=== PATIENT | female | born 1930 | race Caucasian/White ===

== ENCOUNTER 2019-03-19 13:12 | Inpatient (IN) | payer MEDICARE, MEDICAID ==
[~2019-03-19] VITALS: Ht 154.9 cm; Wt 49.4 kg
[2019-03-19] MEDS ORDERED: QUET100T PO ×2 (13:42)
[2019-03-19] MEDS ORDERED: ESTR0.623 PO (13:42)
[2019-03-19] MEDS ORDERED: METH1TAB29 PO (13:42)
[2019-03-19] MEDS ORDERED: LEVO75TA7 PO (13:42)
[2019-03-19] MEDS ORDERED: AMLO2.5T4 PO (13:42)
[2019-03-19] MEDS ORDERED: MEMA21CA PO (13:42)
[2019-03-19] MEDS ORDERED: MULT1TAB73 PO (13:42)
[2019-03-19] MEDS ORDERED: CYAN-10 SQ (13:42)
[2019-03-19] MEDS ORDERED: ATOR20TA PO (13:42)
[2019-03-19] MEDS ORDERED: ASPI81TA44 PO (13:42)
[2019-03-19] MEDS ORDERED: QUET25TA PO (13:42)
[2019-03-19] MEDS ORDERED: LORAZEPAM 2 MG/1 ML VIAL ONE (14:15)
[2019-03-19] MEDS ORDERED: LORAZEPAM 2 MG/1 ML VIAL IM ONE (14:15)
[2019-03-19 14:19] LABS: BASOPHILS # (AUTO) 0.1 K/uL (0.0-8.0); BASOPHILS % (AUTO) 0.8 % (0.0-2.0); EOSINOPHILS # (AUTO) 0.1 K/uL (0.0-0.7); EOSINOPHILS % (AUTO) 1.3 % (0.0-7.0); HEMOGLOBIN 13.1 g/dL (10.9-14.3); LYMPHOCYTES # (AUTO) 1.9 K/uL (20.0-40.0); LYMPHOCYTES % (AUTO) 22.4 % (20.5-51.5); MEAN CORPUSCULAR HEMOGLOBIN 27.5 uug (24.7-32.8); MEAN CORPUSCULAR HGB CONC 32 g/dL (32.3-35.6); MEAN CORPUSCULAR VOLUME 86.1 fL (75.5-95.3); MONOCYTES # (AUTO) 0.6 K/uL (2.0-10.0); MONOCYTES % (AUTO) 7.1 % (0.0-11.0); NEUTROPHILS # (AUTO) 5.8 K/uL (1.8-8.9); NEUTROPHILS % (AUTO) 68.4 % (38.5-71.5); PLATELET COUNT (AUTO) 402 K/uL (179-408); RED BLOOD CELL COUNT(AUTO) 4.76 MIL/uL (3.63-4.92); WHITE BLOOD COUNT (AUTO) 8.5 K/uL (3.8-11.8)
[2019-03-19 14:21] LABS: CARBON DIOXIDE 28 mmol/L (21-32); CHLORIDE 108 mmol/L (98-107); CREATININE 1.1 mg/dL (0.6-1.3); GLUCOSE 137 mg/dL (74-106); POTASSIUM 5.1 mmol/L (3.5-5.1); UREA NITROGEN, BLOOD 21 mg/dL (7-18)
[2019-03-19 14:24] LABS: *BILIRUBIN,URIN NEGATIVE (NEGATIVE); *BLOOD, URINE NEGATIVE (NEGATIVE); *CLARITY,URINE CLOUDY (CLEAR); *COLOR,URINE YELLOW (YELLOW); *KETONES,URINE NEGATIVE (NEGATIVE); *UROBILINOGEN,URINE 0.2 E.U./dl (NORMAL); LEUKOCYTE ESTERASE ,URINE 1+ (NEGATIVE); NITRITE, URINE POSITIVE (NEGATIVE); PH,URINE >=9.0 (5.0-8.0); UGLUCOSE NEGATIVE (NEGATIVE)
[2019-03-19 14:26] LABS: ALANINE AMINOTRANSFERASE 9 U/L (14-59); ALKALINE PHOSPHATASE 90 U/L (50-136); ASPARTATE AMINOTRANSFERASE 16 U/L (15-37); BILIRUBIN,DIRECT 0.1 mg/dL (0.0-0.2); BILIRUBIN,TOTAL 0.2 mg/dL (0.2-1.0); TOTAL PROTEIN, SERUM 7.2 g/dL (6.4-8.2)
[2019-03-19 14:27] LABS: ETHANOL < 3 MG/DL (0-0)
[2019-03-19 14:30] LABS: ACETAMINOPHEN < 2.0 ug/mL (10-30)
[2019-03-19 14:48] LABS: THYROID STIMULATING HORMONE 3.363 mIU/mL (0.358-3.740)
[2019-03-19 14:50] LABS: BACTERIA,URINE MANY /HPF (NONE SEEN); TRIPLE PHOSPHATE CRYSTAL,UR MANY /HPF (NONE SEEN); URINE AMORPHOUS PHOSPHATES MANY /HPF
[2019-03-19 14:52] LABS: *AMPHETAMINE, URINE NEGATIVE (NEGATIVE); *BARBITURATE, URINE NEGATIVE (NEGATIVE); *CANNABINOID, URINE NEGATIVE (NEGATIVE); *COCCAINE, URINE NEGATIVE (NEGATIVE); *OPIATE, URINE NEGATIVE (NEGATIVE); *PHENCYCLIDINE SCREEN,URINE NEGATIVE (NEGATIVE)
--- NOTE | 2019-03-19 16:34 | NUR ---
ROSHNI speaking with Dr. De Jesus (VASCULAR SURGERY).
--- NOTE | 2019-03-19 16:50 | NUR ---
Called [facility] transfer center (main [phone], fax [phone]) per request for HLOC transfer. Spoke with Samuel, requested information provided via telephone, facesheet and CT report faxed as requested.
--- NOTE | 2019-03-19 17:09 | NUR ---
ROSHNI spoke with Leif Montaño ([facility]).
--- NOTE | 2019-03-19 17:25 | NUR ---
Received telephone call from Samuel from [facility] who stated he spoke with their vascular surgeon who declined the case. notified.
--- NOTE | 2019-03-19 17:40 | NUR ---
DR DIAMOND DISCUSSED PT's CASE WITH DR JONES AND PT's IRVIN. PT IS GOING TO BE ADMITED TO [facility] ROOM #[address] BLANKENSHIP SUPERVISION.
--- NOTE | 2019-03-19 17:42 | NUR ---
REPORT WAS GIVEN TO U JOANNA. PT WAS TRANSFERED TO [facility] ROOM #145.
[2019-03-19] MEDS ORDERED: MAGNESIUM HYDROXIDE 30 ML LIQUID UDC PO PRN (18:15)
[2019-03-19] MEDS ORDERED: MAG HYDROX/AL HYDROX/SIMETH 30 ML LIQUID UDC PO PRN (18:15)
[2019-03-19] MEDS ORDERED: LORAZEPAM 0.5 MG TABLET PO PRN (18:15)
[2019-03-19] MEDS ORDERED: ZOLPIDEM 5 MG TABLET PO PRN (18:15)
[2019-03-19] MEDS ORDERED: BLOOD SUGAR DIAGNOSTIC 1 EACH STRIP VI ONE (18:15)
[2019-03-19 18:53] VITALS: BP 117/69
--- NOTE | 2019-03-19 19:00 | NUR ---
1800 Received patient from ER per jaimee, alert and ox1. Resp. even and unlabored, no s/s acute distress. Patient placed on 5150 for danger to others and gravely disabled, patient aggressive in the usp. Vijay check done; skin tear on right arm . Patient has a supra pubic cath draining yellow colored urine and foul odor. Upon face -face patient ia alert and ox1, confused and unable to give any information. Epic MD and psych trombone slide assembler notified by charge nurse to reconcile meds,
--- NOTE | 2019-03-19 20:00 | NUR ---
Patient received into care, sitting up in bannerichair, next to nurse's station. Patient is alert/oriented x1 and has no complaints of pain or discomfort at this time. All safety and fall precaution measures are in place. Will continue to monitor.
[2019-03-19] MEDS: LORAZEPAM 1 MG TABLET PO PRN (21:20)
--- NOTE | 2019-03-19 22:45 | NUR ---
DR RODRIGO JONES WAS NOTIFY OF PATIENT'S URINALYSIS RESULTS. HE STATE HE WILL "LOOK AT THEM". WILL CONTINUE TO MONITOR.
[2019-03-20] MEDS: LEVOTHYROXINE SODIUM 75 MCG TABLET PO SCH (06:31)
--- NOTE | 2019-03-20 06:57 | NUR ---
Patient slept 7.15 hours this shift and was compliant with all aspects of care, including medicine regime. Inspection of patient's suprapubic catheter reflects zero output in casillas bag and diaper completely soaked. Additionally, dressing around suprapubic opening was stiff with dried urine and exudate, and suprapubic opening surrounded by redness. Patient had perianal redness which was addressed with zguard. Patient had no incidents of combativeness or striking out this shift. All safety and fall precaution measures remain in place.
[2019-03-20 07:30] VITALS: BP 110/54
--- NOTE | 2019-03-20 07:30 | NUR ---
Recieved pt lying in bed very sound asleep. Arousable to call but answered inappropriately. Appears to be generally weak. Verbally responsive and oriented to her name only. Very confused and unable to follow directions. Moves all extremties but needs maximal assistance. Pt has a suprapubic catheter casillas size 12 i connected to a foleybag, with zero urine. Site is slightly red and has urine leakage around the stoma. Bladder is soft, no-distended. Pt denies any discomfort. Cleaned up the site and coverred with 4x4 gauze and mepelex. Abdomenal binder applied to keep pt from pulling it out.
[2019-03-20] MEDS ORDERED: Medication Not On Formulary EA (Methenamine Hippurate 1 GM) PO SCH (09:00)
[2019-03-20] MEDS ORDERED: Medication Not On Formulary EA (Multivitamins (Multivitamin) 1 EACH) PO SCH (09:00)
[2019-03-20] MEDS: MULTIVITAMINS,THERAPEUTIC TABLET PO SCH (09:43)
[2019-03-20] MEDS: ASPIRIN EC 81 MG TABLET.DR PO SCH (09:43)
[2019-03-20] MEDS: AMLODIPINE 2.5 MG TABLET PO SCH (09:44)
[2019-03-20] MEDS: ESTROGENS,CONJUGATED 0.625 MG TABLET PO SCH (09:44)
--- NOTE | 2019-03-20 13:00 | NUR ---
Pt's diaper is chaned, soaked with urine. Unable to flush the catheter or pull out any urine. Bladder scan done and theres only 29ml present.
[2019-03-20 13:06] LABS: HEPATITIS B SURFACE AB Non Reactive (.); HEPATITIS B SURFACE AG Negative (Negative)
--- NOTE | 2019-03-20 13:30 | NUR ---
Notified Dr Navarro about pt's condition especially regarding the blocked catheter. Will refer pt to a urlogy consult as per his order.
[2019-03-20] MEDS: CEphaleXIN 500 MG CAPSULE PO SCH ×3 (13:49→21:07)
--- NOTE | 2019-03-20 14:19 | NUR ---
CALLED AND SPOKE TO NURSE FAHAD FROM [facility]. SHE STATED CATHETER GETS CLOGGED "OFTEN" AND PT REQUIRES TO BE SENT OUT TO THE HOSPITAL TO HAVE IT REPLACED. STATE THE LAST TIME PT WAS SENT OUT FOR A NEW CATHETER WAS IN OCTOBER.
[2019-03-20] MEDS: LORAZEPAM 1 MG TABLET PO PRN (15:00)
--- NOTE | 2019-03-20 15:00 | NUR ---
Pt is very agitated and uncooperative. Refused to take her oral medications. MD is aware. Pt is given Ativan 1mg as ordered but pt refused to take it.
[2019-03-20 15:17] VITALS: BP 126/59
--- NOTE | 2019-03-20 15:30 | NUR ---
Notified Dr Smith about pt's suprapubic catheter. HeWill try to reinsert tonite or tomorrow.
--- NOTE | 2019-03-20 16:04 | NUR ---
STAFF NURSE CALLED AND SPOKE TO DR. VILLASENOR REGARDING PT'S SUPRAPUBIC CATHETER LEAKING AND CLOGGED. ORDERED FOR CONSULT WITH UROLOGY, DR. GODFREY.
--- NOTE | 2019-03-20 16:12 | NUR ---
CALLED DR. RICHARDSON[facility]S ANSWERING SERVICE TO NOTIFY OF CONSULT. STATED THEY WILL PAGE DOCTOR.
--- NOTE | 2019-03-20 16:18 | NUR ---
DR. GODFREY CALLED BACK AT THIS TIME. STATED HE WILL TRY TO BE HERE TODAY AND TO GET A SALINAS TRAY AND 12FR CATHETER READY.
--- NOTE | 2019-03-20 18:00 | NUR ---
Pt refused to eat dinner and threw out her food on the floor. Sleeping on and off. PM care rendered with maximal assistance.
--- NOTE | 2019-03-20 18:15 | NUR ---
Seen and examined by Dr Navarro with no new orders.
[2019-03-20] MEDS: ATORVASTATIN 20 MG TABLET PO SCH (21:00)
[2019-03-20] MEDS: QUETIAPINE FUMARATE 100 MG TABLET PO SCH (21:00)
--- NOTE | 2019-03-20 21:08 | NUR ---
Received patient in Xochilt chair, angry, combative. Refusing to take medications, eat or drink. Patient put in bed, replaced suprapubic catheter at bedside. Patient tolerated it well. New dressing applied along with abdominal binder. Patient in bed resting at this time. Continuing to monitor urine output.
[2019-03-21] MEDS: CEphaleXIN 500 MG CAPSULE PO SCH ×3 (05:36→23:21)
--- NOTE | 2019-03-21 05:57 | NUR ---
Patient slept 5 hours on and off. Suprapubic catheter patent and draining. 200ml output during the night. Patient received bed bath but was very combative, hitting, scratching and trying to bite the nurse. Refused am antibiotics. Patient very paranoid and yelling during am care. No distress at this time noted. Will endorse to next shift.
[2019-03-21] MEDS: LEVOTHYROXINE SODIUM 75 MCG TABLET PO SCH (07:30)
[2019-03-21 08:00] VITALS: BP 151/56
[2019-03-21] MEDS ORDERED: OLANZAPINE 10 MG VIAL IM ONE (09:00)
--- NOTE | 2019-03-21 09:00 | NUR ---
Seen and examined by Dr Lovett with new orders. Pt is very agitated and aggressive. She is yelling and refusing her oral medications. Pt does not eat , threw her food on the floor. is aware. and ordered Zyprexa 5mg IMx1 for her severe agitation.
--- NOTE | 2019-03-21 09:10 | NUR ---
Pt is medicated with Zyprexa 5mg IM on the left deltoid with maximal assistance.
[2019-03-21] MEDS: MULTIVITAMINS,THERAPEUTIC TABLET PO SCH (09:46)
[2019-03-21] MEDS: ASPIRIN EC 81 MG TABLET.DR PO SCH (09:46)
[2019-03-21] MEDS: ESTROGENS,CONJUGATED 0.625 MG TABLET PO SCH (09:46)
[2019-03-21] MEDS: SERTRALINE HCL 50 MG TABLET PO SCH (09:46)
[2019-03-21] MEDS: AMLODIPINE 2.5 MG TABLET PO SCH (09:46)
--- NOTE | 2019-03-21 13:30 | NUR ---
Pt up to the bathroom with PT and another person. Pt is still easily gets agitated but more cooperative.
--- NOTE | 2019-03-21 15:00 | NUR ---
Pt [facility] afternoon. Took her keflex antibiotic med. Suprapubic catheter is intact and draining cloudy yellow urine with lots of sediments..
--- NOTE | 2019-03-21 15:30 | NUR ---
Seen and examined by Leif FIGUEREDO, no new orders.
[2019-03-21 16:00] VITALS: BP 93/48
[2019-03-21] MEDS: QUETIAPINE FUMARATE 100 MG TABLET PO SCH (20:31)
[2019-03-21] MEDS: ATORVASTATIN 20 MG TABLET PO SCH (20:31)
[2019-03-21 21:07] VITALS: BP 110/61
[2019-03-21] MEDS: LORAZEPAM 1 MG TABLET PO PRN (23:23)
[2019-03-22] MEDS: CEphaleXIN 500 MG CAPSULE PO SCH ×3 (05:59→22:41)
[2019-03-22] MEDS: LEVOTHYROXINE SODIUM 75 MCG TABLET PO SCH (06:37)
[2019-03-22 07:30] VITALS: BP 114/52
[2019-03-22] MEDS: MULTIVITAMINS,THERAPEUTIC TABLET PO SCH (08:11)
[2019-03-22] MEDS: SERTRALINE HCL 50 MG TABLET PO SCH (08:12)
[2019-03-22] MEDS: ASPIRIN EC 81 MG TABLET.DR PO SCH (08:12)
[2019-03-22] MEDS: ESTROGENS,CONJUGATED 0.625 MG TABLET PO SCH (08:14)
[2019-03-22] MEDS: AMLODIPINE 2.5 MG TABLET PO SCH (08:15)
--- NOTE | 2019-03-22 11:35 | NUR ---
diversified crops farmworker attempted to meet with pt to conduct sw assessment but pt asleep and not easily aroused. diversified crops farmworker called next of kin listed on facesheet, daughter Lakeisha Connolly [[phone]], but no answer. SW left voicemail. SW will attempt to contact family again at a later time.
--- NOTE | 2019-03-22 13:40 | NUR ---
Initial discharge plan: Pt resides at [facility] (SNF) located at [address] [place] [id number]; [phone].WANDA spoke with MIN, instructional technology coordinator at [facility], and he confirmed that pt will be accepted back to the facility once she is ready for discharge. WANDA called pts next of kin, daughter Lakeisha Connolly [[phone]] to discuss discharge plan, but no answer, and WANDA left voicemail. WANDA will work with pt, pt family, and MD to form a safe and proper discharge.
--- NOTE | 2019-03-22 14:00 | NUR ---
Pts daughter, Lakeisha Connolly [[phone]] returned social workers call and confirmed with geriatric social work professor that family is in agreement of having pt return to [facility] once she is ready for discharge.
[2019-03-22 15:21] VITALS: BP 103/46
--- NOTE | 2019-03-22 18:37 | NUR ---
GPS: RECEIVED PATIENT AOX1, ON HER BED, WITH SUPRAPUBIC CATHETER ATTACH TO BEDSIDE BAG WITH 50 CC OF CLEAR URINE FLOWING, PATIENT CALM HOWEVER EASILY IRRITABLE, COMPLIANT WITH MEDICATION, PATIENT ENCOURAGE TO DRINK MORE WATER THROUGHOUT THE DAY, PATIENT WERE CALM THROUGHOUT THE DAY NO DISTRESS NOTED
[2019-03-22 20:00] VITALS: BP 108/55
[2019-03-22] MEDS: ATORVASTATIN 20 MG TABLET PO SCH (20:36)
[2019-03-22] MEDS: QUETIAPINE FUMARATE 100 MG TABLET PO SCH (20:37)
[2019-03-22] MEDS: ACETAMINOPHEN 325 MG TABLET PO PRN (23:49)
[2019-03-23] MEDS: LORAZEPAM 1 MG TABLET PO PRN (00:13)
[2019-03-23 02:06] LABS: HEPATITIS Be ANTIGEN Negative (Negative)
[2019-03-23] MEDS: CEphaleXIN 500 MG CAPSULE PO SCH ×3 (06:00→22:05)
[2019-03-23] MEDS: LEVOTHYROXINE SODIUM 75 MCG TABLET PO SCH ×2 (06:35→07:00)
--- NOTE | 2019-03-23 07:03 | NUR ---
PT SLEPT 5 HOURS. PT IN NO ACUTE DISTRESS. PRESCRIBED MEDICATION GIVEN AND PT TOLERATED IT WELL. PT GIVEN PRN MEDICATIONS. AM MEDICATIONS PT REFUSED IT. PT WHILE CHANGING HER DIAPER. PT BECOME COMBATIVE AND TRY TO STRIKE A STAFF. PT NEEDS REORIENTATION. SUPRAPUBIC CATHETER INTACT AND DWELLING WELL. SAFETY AND COMFORT PROVIDED. WILL ENDORSE TO INCOMING NURSE FOR CONTINUITY OF CARE.
[2019-03-23 07:30] VITALS: BP 117/49
--- NOTE | 2019-03-23 08:00 | NUR ---
Pt is very sound asleep in bed, but arousable to call. N apparent distress noted.
--- NOTE | 2019-03-23 09:30 | NUR ---
Pt is awakened and placed on a gerochair. Awaken and oriented to her name. Very pleasant and cooperative. Placed chair on the hallway and pt ate good amount for breakfast.
--- NOTE | 2019-03-23 10:00 | NUR ---
Suprapubic catheter in intact and draining well, cloudy yellow urine, good amount.
[2019-03-23] MEDS: SERTRALINE HCL 50 MG TABLET PO SCH (10:41)
[2019-03-23] MEDS: ASPIRIN EC 81 MG TABLET.DR PO SCH (10:41)
[2019-03-23] MEDS: MULTIVITAMINS,THERAPEUTIC TABLET PO SCH (10:41)
[2019-03-23] MEDS: ESTROGENS,CONJUGATED 0.625 MG TABLET PO SCH (10:42)
[2019-03-23] MEDS: AMLODIPINE 2.5 MG TABLET PO SCH (10:42)
--- NOTE | 2019-03-23 14:00 | NUR ---
Pt fallen asleep on the gerochair and refused to take the medicine keflex
[2019-03-23 15:12] VITALS: BP 138/56
--- NOTE | 2019-03-23 17:30 | NUR ---
Pt refused her dinner and fell asleep.
[2019-03-23 20:16] VITALS: BP 112/64
[2019-03-23] MEDS: ATORVASTATIN 20 MG TABLET PO SCH (22:04)
[2019-03-23] MEDS: QUETIAPINE FUMARATE 100 MG TABLET PO SCH (22:05)
--- NOTE | 2019-03-23 23:01 | NUR ---
Received patient in gerichari resting, but agitated when spoken to. No distress noted. Suprapubic catheter noted, draining well. Was able to give medication with pudding. Will continue to monitor.
[2019-03-24] MEDS: CEphaleXIN 500 MG CAPSULE PO SCH ×3 (06:00→20:27)
[2019-03-24] MEDS: LEVOTHYROXINE SODIUM 75 MCG TABLET PO SCH (06:37)
--- NOTE | 2019-03-24 06:37 | NUR ---
Patient agitated when awaken for morning medication. She refused Keflex and Synthroid. Explained the use, benefits, and risk, but patient just said "you can go now" and I offered again 15 min later, but she still refused. Will endorse to next shift.
[2019-03-24 07:30] VITALS: BP 121/49
[2019-03-24] MEDS: ASPIRIN EC 81 MG TABLET.DR PO SCH (08:33)
[2019-03-24] MEDS: AMLODIPINE 2.5 MG TABLET PO SCH (08:36)
[2019-03-24] MEDS: ESTROGENS,CONJUGATED 0.625 MG TABLET PO SCH (09:00)
[2019-03-24] MEDS: MULTIVITAMINS,THERAPEUTIC TABLET PO SCH (09:00)
[2019-03-24] MEDS ORDERED: CYANOCOBALAMIN 1000 MCG/ML VIAL IM SCH (09:00)
[2019-03-24] MEDS: SERTRALINE HCL 50 MG TABLET PO SCH (09:00)
[2019-03-24] MEDS ORDERED: OLANZAPINE 10 MG VIAL IM ONE (09:00)
[2019-03-24] MEDS: LORAZEPAM 1 MG TABLET PO PRN (14:55)
[2019-03-24 16:00] VITALS: BP 106/49
[2019-03-24] MEDS: QUETIAPINE FUMARATE 100 MG TABLET PO SCH (20:27)
[2019-03-24] MEDS: ATORVASTATIN 20 MG TABLET PO SCH (20:27)
--- NOTE | 2019-03-24 22:00 | NUR ---
received to care, up in willem chair compliant with medications, easily agitated difficult to redirect. refused to go to bed. currently up in willem chair talking to self. no distress noted. will continue to monitor closely.
--- NOTE | 2019-03-25 02:03 | NUR ---
assisted to bed earlier. appears to be asleep. no distress noted.
[2019-03-25] MEDS: CEphaleXIN 500 MG CAPSULE PO SCH ×3 (06:00→20:09)
--- NOTE | 2019-03-25 06:00 | NUR ---
SLEPT 4.5 HOURS. REFUSED AM MEDICATIONS
[2019-03-25] MEDS: LEVOTHYROXINE SODIUM 75 MCG TABLET PO SCH (06:37)
[2019-03-25 07:30] VITALS: BP 109/58
[2019-03-25] MEDS: AMLODIPINE 2.5 MG TABLET PO SCH (09:00)
[2019-03-25] MEDS ORDERED: QUETIAPINE FUMARATE 25 MG TABLET PO SCH (09:00)
[2019-03-25] MEDS: ASPIRIN EC 81 MG TABLET.DR PO SCH (09:00)
[2019-03-25] MEDS: MULTIVITAMINS,THERAPEUTIC TABLET PO SCH (09:00)
[2019-03-25] MEDS: SERTRALINE HCL 50 MG TABLET PO SCH (09:00)
[2019-03-25] MEDS: ESTROGENS,CONJUGATED 0.625 MG TABLET PO SCH (09:00)
[2019-03-25 16:00] VITALS: BP 108/47
[2019-03-25] MEDS: QUETIAPINE FUMARATE 100 MG TABLET PO SCH (20:08)
[2019-03-25] MEDS: ATORVASTATIN 20 MG TABLET PO SCH (20:12)
[2019-03-25 20:44] VITALS: BP 117/64
--- NOTE | 2019-03-25 22:00 | NUR ---
received to care, up in willem chair compliant with medications, easily agitated, but easy to redirect. refused to go to bed. currently up in willem chair talking to self. s/p catheter in place, and patent. no distress noted. will continue to monitor closely.
--- NOTE | 2019-03-26 02:00 | NUR ---
Assisted to be around 0130. a sof 0200, she appears to be asleep. no distress noted.
[2019-03-26] MEDS: CEphaleXIN 500 MG CAPSULE PO SCH (05:38)
--- NOTE | 2019-03-26 06:00 | NUR ---
slept 3.25 hours totaL.
[2019-03-26] MEDS: LEVOTHYROXINE SODIUM 75 MCG TABLET PO SCH (06:09)
[2019-03-26 07:30] VITALS: BP 104/49
[2019-03-26] MEDS: ASPIRIN EC 81 MG TABLET.DR PO SCH (08:23)
[2019-03-26] MEDS: MULTIVITAMINS,THERAPEUTIC TABLET PO SCH (08:24)
[2019-03-26] MEDS: ESTROGENS,CONJUGATED 0.625 MG TABLET PO SCH (08:27)
[2019-03-26] MEDS: AMLODIPINE 2.5 MG TABLET PO SCH (08:27)
--- NOTE | 2019-03-26 10:11 | NUR ---
Family Contact: Family Contact: SW contacted pts daughter Lakeisha, ([phone]) and informed that pts hearing will occur today. Pts daughter was informed and aware. Addendum: 03/26/19 at 1011 by CLAUDIA MUÑOZ Family Contact: WANDA contacted pts daughter Lakeisha, ([phone]) and informed that pts hearing will occur today. Pts daughter was informed and aware.
--- NOTE | 2019-03-26 10:23 | NUR ---
Family Contact: Pts daughter, Lakeisha ([phone]) asked to speak to Dr. Lovett.
--- NOTE | 2019-03-26 15:27 | NUR ---
Family Contact: child welfare caseworker informed pts next of kin, daughter Lakeisha Connolly [[phone]] regarding outcome of hold hearing.
[2019-03-26] MEDS: LORAZEPAM 1 MG TABLET PO PRN (16:01)
[2019-03-26 16:49] VITALS: BP 127/63
[2019-03-26] MEDS: MIRTAZAPINE 15 MG TABLET PO SCH (20:04)
[2019-03-26] MEDS: ATORVASTATIN 20 MG TABLET PO SCH (20:04)
[2019-03-26] MEDS: QUETIAPINE FUMARATE 100 MG TABLET PO SCH (20:04)
[2019-03-26 20:32] VITALS: BP 117/97
--- NOTE | 2019-03-27 00:33 | NUR ---
assisted to bed, and went right to sleep. no distress noted.
--- NOTE | 2019-03-27 06:00 | NUR ---
SLEPT 7.25 HOURS.
[2019-03-27] MEDS: LEVOTHYROXINE SODIUM 75 MCG TABLET PO SCH (07:08)
[2019-03-27 08:00] VITALS: BP 136/115
[2019-03-27] MEDS: MULTIVITAMINS,THERAPEUTIC TABLET PO SCH (09:57)
[2019-03-27] MEDS: ESTROGENS,CONJUGATED 0.625 MG TABLET PO SCH (09:57)
[2019-03-27] MEDS: AMLODIPINE 2.5 MG TABLET PO SCH (09:58)
[2019-03-27] MEDS: ASPIRIN EC 81 MG TABLET.DR PO SCH (09:58)
[2019-03-27 16:15] VITALS: BP 102/54
--- NOTE | 2019-03-27 17:36 | NUR ---
GPS: RECEIVED PATIENT AOX1, ASLEEP ON HER BED, WITH SUPRAPUBIC CATHETER ATTACH TO BEDSIDE BAG FLOWING WITH CLEAR URINE, PATIENT WOKE UP TOOK HER MEDICATION,PATIENT EASILY IRRITABLE, HOWEVER COMPLIANT WITH MEDICATION , SITS IN HER CHAIR AND CALM LISTENING TO MUSIC PATIENT ENCOURAGE TO DRINK WATER AND JUICE, PATIENT IN NO DISTRESS WILL CONTINUE MONITOR
--- NOTE | 2019-03-27 20:00 | NUR ---
RECEIVED PATIENT IN THE HALLWAY SITING IN A CINTHIA CHAIR. SHE IS NOTED A/O X 1. CALM AND PLEASANT UPON APPROACHED. SHE IS NOTED WITH FLIGHT OF IDEAS TANGENTAL AND POOR HISTORIAN. V/S STABLE AT THIS TIME, SAFETY AND FALL PRECAUTION IN PLACE. WILL CONTINUE TO MONITOR,
[2019-03-27 20:14] VITALS: BP 112/41
[2019-03-27] MEDS: ATORVASTATIN 20 MG TABLET PO SCH (20:20)
[2019-03-27] MEDS: QUETIAPINE FUMARATE 100 MG TABLET PO SCH (20:20)
[2019-03-27] MEDS: MIRTAZAPINE 15 MG TABLET PO SCH (20:20)
[2019-03-27] MEDS: ACETAMINOPHEN 325 MG TABLET PO PRN (22:41)
--- NOTE | 2019-03-28 06:05 | NUR ---
PATIENT SLEPT FOR APPROX 6.30 HRS THROUGH THE NIGHT. 400ML URINE OUTPUT FORM SUPRAPUVIC CATH WAS REMOVED AND RECORDED. SUPRAPUVIC CATH IS INTACT. WILL CONTINUE TO MONITOR.
--- NOTE | 2019-03-28 06:20 | NUR ---
SUPRAPUVIC CATH DRESSING WAS CHANGED. PT WAS COOPERATIVE WITH CARE. WILL CONTINUE TO MONITOR,
[2019-03-28] MEDS: LEVOTHYROXINE SODIUM 75 MCG TABLET PO SCH (06:59)
[2019-03-28 08:11] VITALS: BP 119/50
[2019-03-28] MEDS: AMLODIPINE 2.5 MG TABLET PO SCH (09:59)
[2019-03-28] MEDS: ASPIRIN EC 81 MG TABLET.DR PO SCH (09:59)
[2019-03-28] MEDS: ESTROGENS,CONJUGATED 0.625 MG TABLET PO SCH (09:59)
[2019-03-28] MEDS: MULTIVITAMINS,THERAPEUTIC TABLET PO SCH (09:59)
[2019-03-28 16:25] VITALS: BP 126/50
[2019-03-28 20:00] VITALS: BP 89/40
[2019-03-28 20:30] VITALS: BP 112/55
[2019-03-28] MEDS: MIRTAZAPINE 15 MG TABLET PO SCH (20:59)
[2019-03-28] MEDS: QUETIAPINE FUMARATE 100 MG TABLET PO SCH (20:59)
[2019-03-28] MEDS: ATORVASTATIN 20 MG TABLET PO SCH (20:59)
[2019-03-29] MEDS: LEVOTHYROXINE SODIUM 75 MCG TABLET PO SCH (06:41)
--- NOTE | 2019-03-29 07:45 | NUR ---
noted patient's S/P cath unable to irrigated, notified , per Dr. daly he will coming to re-insert the S/p cath.
[2019-03-29] MEDS: ASPIRIN EC 81 MG TABLET.DR PO SCH (08:50)
[2019-03-29] MEDS: ESTROGENS,CONJUGATED 0.625 MG TABLET PO SCH (08:50)
[2019-03-29] MEDS: MULTIVITAMINS,THERAPEUTIC TABLET PO SCH (08:50)
[2019-03-29] MEDS: AMLODIPINE 2.5 MG TABLET PO SCH (09:00)
[2019-03-29 09:30] VITALS: BP 104/52
--- NOTE | 2019-03-29 09:30 | NUR ---
Facility Contact: WANDA faxed CJ from [facility], ([phone]) patients clinicals. Patient was approved for re-admissions.
--- NOTE | 2019-03-29 09:33 | NUR ---
Family Contact: WANDA contacted patients lg Arizmendi, ([phone]) and addressed that patient will be discharged today at [facility]. Pts lg Arizmendi agreed with discharge. Addendum: 03/29/19 at 0940 by CLAUDIA MUÑOZ Family Contact: WANDA contacted patients daughter Lakeisha, ([phone]) and left a voicemail that patient will be discharged tomorrow 03/[address] [facility].
[2019-03-29] MEDS: LORAZEPAM 1 MG TABLET PO PRN (09:38)
--- NOTE | 2019-03-29 09:39 | NUR ---
Family Contact: SW contacted patients daughter Lakeisha, ([phone]) and left a voicemail that patient will be discharged tomorrow 03/30 back to [facility].
[2019-03-29 16:10] VITALS: BP 97/49
--- NOTE | 2019-03-29 17:34 | NUR ---
RECEIVED PATIENT AOX1, COMPLIANT WITH MEDICATION, DID BLADDER AT 1700 88ML PATIENT WET HER DIAPER AND STILL NO DRAINAGE IN HER SUPRAPUBIC CATHETER MD AWARE, WITH UROLOGIST CALLED THIS MORNING AND WILL COME THIS PM, PATIENT IN NO DISTRESS AT THIS TIME
[2019-03-29 20:35] VITALS: BP 118/59
[2019-03-29] MEDS: ATORVASTATIN 20 MG TABLET PO SCH (21:14)
[2019-03-29] MEDS: QUETIAPINE FUMARATE 100 MG TABLET PO SCH (21:14)
[2019-03-29] MEDS: MIRTAZAPINE 15 MG TABLET PO SCH (21:14)
--- NOTE | 2019-03-29 22:30 | NUR ---
received to care, lying in bed, pleasant upon approach. compliant with medications and staff direction. received to care, lying in bed, pleasant upon approach. denies any lange or discomfort. complaint with medications and staff direction. miranda Roman (urology), who changed her s/p catheter with 16 fr catheter, which is patent, draining clear and marissa urine in adequate amounts. pt is currently asleep. no distress noted.
--- NOTE | 2019-03-30 06:00 | NUR ---
SLEPT 1.25 HOURS. REMAINS CALM AND COOPERATIVE.
[2019-03-30] MEDS: LEVOTHYROXINE SODIUM 75 MCG TABLET PO SCH (06:01)
[2019-03-30 07:30] VITALS: BP 114/49
--- NOTE | 2019-03-30 08:06 | NUR ---
Discharge Note: [facility] [[address] [place] [address]; ] via Ambulance transportation. Please arrange Ambulance transportation for patient to be picked up at 12:00am. Environmental Engineering Professor spoke with MIN, [Chha at [facility]; ], who stated patient will be accepted at facility today. Patient is alert and oriented x3-4, and is not able to plan for self-care at this time, but is willing to accept care provided for her at the facility. Patient denies any suicidal or homicidal ideations. Patient is aware and agreeable with discharge plans. Patients daughter, Lakeisha [[phone]] is aware and agreeable with discharge plans. Patient will continue to follow-up with her Psychiatrist Dr. Lovett and Java Grails Developer Dr. Rose at [facility] [[address] [place] [address]; ]. Patient will follow-up at the center. Patient presents with euthymic and congruent mood.
--- NOTE | 2019-03-30 08:08 | NUR ---
Family Contact: WANDA called patients daughter Lakeisha, ([phone]) and left a voicemail that patient will be discharged today to [place] ([phone]).
--- NOTE | 2019-03-30 08:10 | NUR ---
FIREARMS REPORT: Mechanical Integrity Specialist completed and submitted a [employer] firearms report for 5250 grave disability certification. A copy of report has been placed in patient chart.
[2019-03-30] MEDS: ESTROGENS,CONJUGATED 0.625 MG TABLET PO SCH (08:36)
[2019-03-30] MEDS: ASPIRIN EC 81 MG TABLET.DR PO SCH (08:36)
[2019-03-30] MEDS: MULTIVITAMINS,THERAPEUTIC TABLET PO SCH (08:36)
[2019-03-30 08:37] VITALS: BP 114/49
[2019-03-30] MEDS: AMLODIPINE 2.5 MG TABLET PO SCH (08:37)
[2019-03-30] MEDS ORDERED: TEMAZEPAM 7.5 MG CAPSULE PO PRN (08:45)
--- NOTE | 2019-03-30 08:56 | NUR ---
Facility Contact: WANDA faxed patients clinicals to CJ from [facility], ([phone]).
--- NOTE | 2019-03-30 10:18 | NUR ---
GPS:RECEIVED PATIENT AOX1, ON HER TONY CHAIR, PATIENT CALM AND COOPERATIVE , WITH HER SUPRA PUBIC CATHETER ATTACH TO HER URINE BAG, PATIENT COMPLIANT WITH MEDICATION, ASSISTED WITH ADLS, PATIENT HAS DISCHARGE ORDER GOING BACK TO [facility], PATIENT AWARE OF THE DISCHARGE ORDER, GAVE HOME MEDS INSTRUCTION, TOOK PICTURE OF RFA SKIN TEAR DRY AND HEALING, PATIENT REFUSED TO HAVE HER SUPRAPUBIC TO HAVE PICTURE TAKEN , GAVE REPORT TO BEN POLO IN THE SNF, ARRANGE TRANSPORTATION , WILL CONTINUE MONITOR
--- NOTE | 2019-03-30 13:46 | NUR ---
patient discharge accompanied by ambulance personnel unit 126 , patient was calm cooperative denies Si and Hi, with stable VS , MD made aware of the discharge
== END 2019-03-30 15:00 | DRG 885 ==
LOC: ER 13:16 → GPS 17:23
PROVIDERS: ADMIT Psychiatry & Neurology Psychiatry; ATTEND Internal Medicine
PROC: 0T2BX0Z Change Drainage Device in Bladder, External Approach (ICD-10-PCS; principal; 2019-03-20)
DX: F32.3 Major depressive disorder, single episode, severe with psychotic features (principal); F02.81 Dementia in other diseases classified elsewhere, unspecified severity, with behavioral disturbance; N39.0 Urinary tract infection, site not specified; E44.0 Moderate protein-calorie malnutrition; J98.11 Atelectasis; G30.9 Alzheimer's disease, unspecified; N31.9 Neuromuscular dysfunction of bladder, unspecified; E03.9 Hypothyroidism, unspecified; E78.00 Pure hypercholesterolemia, unspecified; E78.5 Hyperlipidemia, unspecified; E86.0 Dehydration; R79.89 Other specified abnormal findings of blood chemistry; Z66 Do not resuscitate; I10 Essential (primary) hypertension; I71.4 Abdominal aortic aneurysm, without rupture; I70.0 Atherosclerosis of aorta; I67.2 Cerebral atherosclerosis; I44.0 Atrioventricular block, first degree; J45.909 Unspecified asthma, uncomplicated; K57.30 Diverticulosis of large intestine without perforation or abscess without bleeding; K80.20 Calculus of gallbladder without cholecystitis without obstruction; N21.0 Calculus in bladder; Z79.899 Other long term (current) drug therapy; Z79.890 Hormone replacement therapy; Z90.710 Acquired absence of both cervix and uterus
CPT/HCPCS: 36415; 70030-TC; 70450; 71045; 80307; 83690; 84443; 85025; 85730; 86704; 86705; 86706; 86803; 87086; 87340; 87350; 93005; A4663; G0480; G0480-TC; J2060; J2358; J3420